=== PATIENT | male | born 1990 ===

== ENCOUNTER 2018-02-28 16:22 | Emergency (ER) | payer OTHER ==
[2018-02-28 16:52] VITALS: BP 126/85; PULSE 77; RESP 20; TEMP 98; O2SAT 98
[2018-02-28] MEDS ORDERED: cefTRIAXone (Rocephin) 250 mg Inj IM STA (17:17)
--- NOTE | 2018-02-28 17:19 | C.PDOC ---
History Of Present Illness 27 y/o male presents to the ER for evaluation of possible STD exposure after he was having sexual intercourse and his condom broke 1 month ago. Patient is wondering if he has an STD so he is requesting STD testing. Denies having fever , chills, and other symptoms at this time. Time Seen by Provider: 02/28/18 16:56 Chief Complaint (Nursing): Male Genitourinary History Per: Patient History/Exam Limitations: no limitations Onset/Duration Of Symptoms: Days Current Symptoms Are (Timing): Still Present Severity: Moderate Past Medical History Reviewed: Historical Data, Nursing Documentation, Vital Signs Vital Signs: Last Vital Signs Temp 98.0 F 02/28/18 16:50 Pulse 77 02/28/18 16:50 Resp 20 02/28/18 16:50 BP 126/85 02/28/18 16:50 Pulse Ox 98 02/28/18 17:39 - Medical History PMH: Asthma Family History: States: Unknown Family Hx - Social History Hx Alcohol Use: No Hx Substance Use: No - Immunization History Hx Tetanus Toxoid Vaccination: Yes Hx Influenza Vaccination: No Hx Pneumococcal Vaccination: No Review Of Systems Except As Marked, All Systems Reviewed And Found Negative. Constitutional: Negative for: Fever, Chills Physical Exam - Physical Exam Appears: Non-toxic, No Acute Distress Skin: Normal Color, Warm, Dry Head: Atraumatic, Normacephalic Eye(s): bilateral: Normal Inspection Male Genital: Other (exam deferred) Neurological/Psych: Oriented x3, Normal Speech ED Course And Treatment O2 Sat by Pulse Oximetry: 98 (RA) Pulse Ox Interpretation: Normal Medical Decision Making Medical Decision Making: Plan: --Zithromax PO --Rocephin IM --UA --Urine Culture --Chlyamdia GC/RNA TMA Updates: Patient has been discharged and instructed to follow up with medical clinic and STD clinic. Disposition Counseled Patient/Family Regarding: Diagnosis, Need For Followup - Disposition Referrals: [facility] [Outside] [facility] [Outside] [facility] [Other] Disposition: HOME/ ROUTINE Disposition Time: 17:19 Condition: IMPROVED Instructions: Sexually-Transmitted Diseases (DC) Forms: [employer] (Uzbek) - Clinical Impression Clinical Impression: STD exposure - Scribe Statement The provider has reviewed the documentation as recorded by the Scribe Aaron Ryan Provider Attestation: All medical record entries made by the Rachel were at my direction and personally dictated by me. I have reviewed the chart and agree that the record accurately reflects my personal performance of the history, physical exam, medical decision making, and the department course for this patient. I have also personally directed, reviewed, and agree with the discharge instructions and disposition.
[2018-02-28 17:26] LABS: SQUAMOUS EPITHIAL < 1 /hpf (0-5); URINE BILIRUBIN NEGATIVE (NEGATIVE); URINE BLOOD NEGATIVE (NEGATIVE); URINE CLARITY Clear (Clear); URINE COLOR Yellow (YELLOW); URINE GLUCOSE (UA) NORMAL (Normal); URINE LEUKOCYTE ESTERASE NEG Leu/uL (Negative); URINE PROTEIN NEGATIVE (NEGATIVE); URINE UROBILINOGEN NORMAL mg/dL (0.2-1.0)
== END 2018-02-28 17:54 | disposition home or self-care (01) ==
LOC: C.ER 16:22
DX: Z20.2 Contact with and (suspected) exposure to infections with a predominantly sexual mode of transmission (principal)
CPT/HCPCS: 81001; 87086; 87491; 87591; 96372; 99283; J0696